=== PATIENT | male | born 1995 ===

== ENCOUNTER → 2023-09-03 12:03 | Outpatient (CLI) | payer OTHER, MEDICAID, SELFPAY ==
--- NOTE | 2023-09-03 12:08 | DI.ECHO.S_ITS ---
[facility]---------+ [facility] : : [address] : : [place] : : [id number] : : Phone: [phone] Echocardiogram Report + + :Name: IRVING CONLEY Study Date: 09/03/2023 Height: 75 in : :Hospital ReadingLocation: Weight: 165 lb : : Gender: Male BSA: 2.0 m2 : :: 1995 Age: 28 yrs BP: 111/58 mmHg: :Reason For Study: SUSPICION OF MARFAN'S : :Ordering Physician: YONI, : :STELLA Performed By: Duarte Panchal : :Referring: STELLA VALLEJO : + + Interpretation Summary The ejection fraction is estimated to be 60-65%. Diastolic parameters suggest probable normal left ventricular diastolic function and normal filling pressures. The right ventricle is normal in size and function. Pulmonary artery pressures cannot be estimated because of the lack of a measurable TR jet velocity but the IVC suggests a CVP of around 3 mmHg. The aortic root is normal size. The ascending aorta could not be visualized. The aortic arch could not be visualized. Procedure: A two-dimensional transthoracic echocardiogram with color flow and Doppler was performed. The study quality was technically adequate. There is no prior echocardiogram noted for this patient. The heart rate ranged between 68-97 bpm during the study. The patient was in normal sinus rhythm during the exam. Left Ventricle: The left ventricle is normal in size and wall thickness. The ejection fraction is estimated to be 60-65%. Diastolic parameters suggest probable normal left ventricular diastolic function and normal filling pressures. Right Ventricle: The right ventricle is normal in size and function. Atria: The left atrial size is normal. Right atrial size is normal. The interatrial septum grossly appears intact with no obvious evidence for an atrial septal defect. Mitral Valve: The mitral valve is normal. There is no mitral valve stenosis. There is no mitral regurgitation noted. Aortic Valve: The aortic valve is trileaflet. There is no aortic valve stenosis. No aortic regurgitation is present. Tricuspid Valve: The tricuspid valve is normal. There is no tricuspid stenosis. No tricuspid regurgitation. Pulmonary artery pressures cannot be estimated because of the lack of a measurable TR jet velocity but the IVC suggests a CVP of around 3 mmHg. Pulmonic Valve: The pulmonic valve is not well visualized. There is no pulmonic valvular stenosis. There is no pulmonic valvular regurgitation. Great Vessels: The aortic root is normal size. The ascending aorta could not be visualized. The aortic arch could not be visualized. The IVC is of normal diameter and collapses greater than 50% with a sniff. This suggests a low right atrial pressure of 3 mm Hg. Pericardium/ Pleura There is no pericardial effusion. There is no pleural effusion. MMode/2D Measurements & Calculations LVIDd: 4.9 cm LVOT diam: 2.2 cm LVIDs: 3.7 cm Ao root diam: 3.5 cm FS: 25.0 % IVSd: 0.71 cm LVPWd: 0.75 cm LV rivera. diameter/BSA (cm/m^2): 2.4 LV sys. diameter/BSA (cm/m^2): 1.8 LA A2 area: 16.7 cm2 RA long axis: 4.6 cm LA A4 area: 16.4 cm2 RA area: 14.4 cm2 LA length (vol): 4.7 cm RA vol: 38.4 ml LA vol: 50.0 ml RA : 19.0 ml/m2 LA vol index: 24.7 ml/m2 IVC diam: 1.9 cm RVD1 (basal): 3.5 cm RVD2 (mid): 3.0 cm TAPSE: 2.3 cm Doppler Measurements & Calculations Ao V2 max: 115.1 cm/sec LVOT Max Markel: 107.0 cm/sec Ao V2 mean: 81.8 cm/sec LV V1 max P.6 mmHg Ao max P.3 mmHg LV V1 VTI: 19.0 cm Ao mean P.0 mmHg YVONNE(I,D): 3.3 cm2 Ao V2 VTI: 21.2 cm YVONNE(V,D): 3.4 cm2 sev ratio: 0.90 YVONNE indexed to BSA (cm^2/m^2): 1.6 MV E max markel: 74.4 cm/sec SV(LVOT): 69.6 ml MV A max markel: 41.3 cm/sec MV E/A: 1.8 Med Peak E' Markel: 12.3 cm/sec E/E' med: 6.0 Lat Peak E' Markel: 15.6 cm/sec E/E' lat: 4.8 E/e' average: 5.4 MV dec time: 0.15 sec Reading Physician:02:29 PM
== END ==
PROVIDERS: PCP Family Medicine; Referring Provider Family Medicine; Visit Provider Family Medicine
DX: M41.9 Scoliosis, unspecified (principal); M35.7 Hypermobility syndrome
CPT/HCPCS: 93306

== ENCOUNTER → 2023-09-11 09:13 | Outpatient (CLI) | payer OTHER, MEDICAID, SELFPAY ==
[2023-09-11 10:37] LABS: Add Manual Diff / Slide Review NO; Basophils Absolute Auto 0 /uL (0-100); Basophils Percent Auto 0.2 % (0-2); Eosinophils Absolute Auto 100 /uL (0-450); Eosinophils Percent Auto 1.7 % (2-4); Hematocrit 43.2 % (41-53); Hemoglobin 14.4 g/dL (13.5-17.5); Lymphocytes Absolute Auto 1500 /uL (1100-4500); Lymphocytes Percent Auto 32.9 % (25-40); Mean Corpuscular HGB Conc 33.3 % (30-36); Mean Corpuscular Hemoglobin 30.2 PG (26-34); Mean Corpuscular Volume 90.6 fL (80-100); Monocytes Absolute Auto 400 /uL (0-900); Monocytes Percent Auto 7.9 % (3-14); Neutrophils Absolute Auto 2600 /uL (1500-7000); Neutrophils Percent Auto 57.3 % (50-75); Platelet Count 190 X10^3/uL (150-400); Red Blood Cell Count 4.77 X10^6/uL (4.5-5.9); Red Cell Distribution Width 13.2 % (11.6-14.8); White Blood Cell Count 4.5 X10^3/uL (4.5-11.0)
[2023-09-11 11:02] LABS: Alanine Aminotransferase 13 IU/L (<50); Albumin 4.5 g/dL (3.5-5.0); Albumin Globulin Ratio 1.8 (1.0-2.8); Alkaline Phosphatase 39 U/L (38-126); Aspartate Aminotransferase 24 IU/L (17-59); BUN Creatinine Ratio 16.1 (6-22); Bilirubin Total 0.6 mg/dL (0.2-1.3); Blood Urea Nitrogen 15 mg/dL (9-20); Calcium 9.2 mg/dL (8.4-10.2); Carbon Dioxide 28 mmol/L (22-32); Chloride 106 mmol/L (98-107); Estimated Glomerular Filt Rate > 60 mL/min (>60); Globulin 2.5 g/dL (1.7-4.1); Glucose 88 mg/dL (70-100); HEMOLYSIS < 15 (0-50); Potassium 4.7 mmol/L (3.4-5.1); Sodium 138 mmol/L (137-145)
[2023-09-11 11:10] LABS: Vitamin D 25 Hydroxy (D3) 34.2 ng/mL (30.0-100.0)
[2023-09-11 11:25] LABS: TSH w/ Reflex to FT4 0.28 uIU/mL (0.47-4.68)
[2023-09-11 11:42] LABS: Vitamin B12 429 pg/mL (239-931)
[2023-09-11 11:50] LABS: Free T4, Direct Thyroxine 1.09 ng/dL (0.78-2.19)
== END ==
PROVIDERS: PCP Family Medicine; Referring Provider Family Medicine; Visit Provider Family Medicine
DX: R53.83 Other fatigue (principal); F32.A Depression, unspecified
CPT/HCPCS: 36415; 80053; 82306; 82607; 84439; 84443; 85025